=== PATIENT | male | born 1990 | race Caucasian/White ===

== ENCOUNTER 2018-03-20 16:55 | Emergency (ER) | payer SELFPAY ==
[~2018-03-20] VITALS: Ht 165.1 cm; Wt 54.9 kg
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
--- NOTE | 2018-03-20 18:12 | NUR ---
patient taken to xray via wheelchair.
--- NOTE | 2018-03-20 18:21 | NUR ---
PATIENT RETURNED FROM RADIOLOGY IN STABLE CONDITION.
[2018-03-20 18:53] VITALS: BP 118/74
--- NOTE | 2018-03-20 18:55 | NUR ---
Patient discharged to home in stable condition. Written and verbal after care instructions given. Patient verbalizes understanding of instruction.
== END 2018-03-20 18:54 | disposition home or self-care (01) ==
LOC: ER 16:58
DX: S20.212A Contusion of left front wall of thorax, initial encounter (principal); Z87.11 Personal history of peptic ulcer disease; Z90.49 Acquired absence of other specified parts of digestive tract; Z88.2 Allergy status to sulfonamides; Z88.1 Allergy status to other antibiotic agents; V43.52XA Car driver injured in collision with other type car in traffic accident, initial encounter; Y93.89 Activity, other specified; Y92.413 State road as the place of occurrence of the external cause; Y99.8 Other external cause status
CPT/HCPCS: 71100; 99284; A4606; Z7610